=== PATIENT | male | born 1950 ===

== ENCOUNTER 2021-07-08 02:11 | Outpatient (RCR) | payer MEDICARE, BC, SELFPAY ==
[2021-06-24] MEDS: Normal Saline Flush 10 ML SYR IVP (10:33)
[2021-06-24] MEDS: IRON SUCROSE COMPLEX 300 MG in Normal Saline 250 ML 176.667 MG IVPB (10:46)
[2021-07-01] MEDS: Normal Saline Flush 10 ML SYR IVP (10:15)
[2021-07-01] MEDS: IRON SUCROSE COMPLEX 300 MG in Normal Saline 250 ML 176.667 MG IVPB (10:15)
[2021-07-08] MEDS: Normal Saline Flush 10 ML SYR IVP ×2 (10:19→10:21)
[2021-07-08] MEDS: IRON SUCROSE COMPLEX 300 MG in Normal Saline 250 ML 176.667 MG IVPB (10:21)
== END 2021-07-14 23:59 | disposition home or self-care (01) ==
LOC: INF 02:11
PROVIDERS: Visit Provider Nurse Practitioner Family
DX: N18.4 Chronic kidney disease, stage 4 (severe) (principal); D63.1 Anemia in chronic kidney disease; D50.9 Iron deficiency anemia, unspecified
CPT/HCPCS: 96365; 96366; J1756